=== PATIENT | female | born 1975 | race Caucasian/White ===

== ENCOUNTER 2017-02-02 02:23 | Emergency (ER) | payer OTHER ==
[~2017-02-02 02:23] MED LIST: *UNABLE2; ACET500CAP PO; ADVIL PO; AMIT100 PO; APIDRA SC; ASAB PO; ASABAYER PO; AT25 PO; ATARAX50B PO; AZO-STANDARD95 MG PO; BACDS PO; BISR PR; CEFT5 PO; CELEXA10 PO; CELEXA20 PO; CELEXA40 MG PO; CIP5 PO; CLARIT10 PO; COREG3 PO; COREG6 PO; CYANO1000T PO; DITRO5 PO; DOLOPHINE10 MG PO; EFFIENT10 PO; ELMIRON 100 MG100 MG OR; ELMIRON 100 MG100 MG PO; ELMIRON100 MG OR; FLORASTOR250 MG PO; FOLIC PO; GLUCOPHAGE1000 MG PO; GLUCPH PO; HCTZ12.5 PO; HUMALOG SC; HUMALOGPEN SC; HUMULIN R1 ML SC; HYDROCHLOROT12.5 MG PO; IMDUR30 PO; IMDUR60 PO; ISORDTAB5 PO; LANTUS SC; LANTUSCART SC; LEVAQUIN750 MG OR; LIPITOR10 PO; LIPITOR40 PO; LIPITOR80 MG PO; LISINOPRIL/HCTZ PO; LOP25 PO; LOP50 PO; LORT7 PO; LORTAB 5 PO; Lipitor PO; MAGOX4 PO; MELATONIN PO; MELATONIN5 M1 PO; METHADONE PO; METHATAB40 PO; MICROZIDE PO; MOBIC7.5 PO; MVI PO; NEUR300 PO; NEUR400 PO; NEUR600 PO; NEUR800 PO; NITROQUICK0.4 MG SL; NORCO1 TA1 PO; NORCO1 TAB PO; NORV10 PO; NOVOLOG SC; P10; P10 PO; P20 PO; PAX10 PO; PAX20 PO; PCET PO; PEP20 PO; PERCOCET1 TA2 PO; PLAVIX PO; PR25 PO; PRILO PO; PRIN2.5 PO; PROAIR HFA INH; REG5 PO; RISP1 PO; RISP2 PO; RISPERDAL M1 MG PO; RISPERDAL PO; SIMVASTATIN PO; SPIRIVA INH; SUCR PO; SYMBICORT 160/41 INH; SYMBICORT 160/41 INH INH; TOPXL50 PO; TREXALL10 MG PO; TREXALL15 MG PO; TRIAMCINOLON0.13 TOP; TRIAMCINOLON0.5 % TOP; TUMS PO; TUMSROLL PO; ULTRAM50 PO; VIST25 PO; ZANAFLEX 4 MG TA4 MG PO; ZOCOR10 PO; ZOCOR20 PO; ZOCOR40 PO; ZOFRAN ODT4 MG PO/SL; [UNRECOGNIZED DRUG - REMARK] PO
[2017-02-02 02:30] LABS: BASOPHILS 0.3 %; BASOPHILS ABSOLUTE 0.04 10/3/uL (0.0-0.16); EOSINOPHILS 0.4 %; EOSINOPHILS ABSOLUTE 0.06 10/3/uL (0.0-0.53); ER CBC TAT 0 Hrs 07 Mins; HEMOGLOBIN 11.2 g/dL (12.0-16.0); IMMATURE GRANULOCYTES 0.2 %; IMMATURE GRANULOCYTES ABSOLUTE 0.03 10/3/uL (0.0-0.11); LYMPHOCYTES 22.2 %; LYMPHOCYTES ABSOLUTE 3.01 10/3/uL (0.67-4.30); MEAN CORPUS HGB CONC 31.8 g/dL (32.0-36.0); MEAN CORPUSCULAR HEMOGLOB 27.4 pg (26.0-34.0); MEAN PLATELET VOLUME 9.5 fL (9.2-13.0); MONOCYTES 6.1 %; MONOCYTES ABSOLUTE 0.83 10/3/uL (0.21-1.20); NEUTROPHILS 70.8 %; NEUTROPHILS ABSOLUTE 9.56 10/3/uL (2.02-8.40); PLATELET COUNT 517 10/3/uL (150-400); RBC DISTRIBUTION WIDTH 15.7 % (12.0-16.0); RED CELL COUNT 4.09 10/6/uL (4.0-5.6); WHITE BLOOD CELLS 13.5 10/3/uL (4.5-10.5)
[2017-02-02 02:32] LABS: HEMATOCRIT 35.2 % (36.0-48.0); MANUAL DIFF NO %; MEAN CORPUSCULAR VOLUME 86.1 fL (80-100)
[2017-02-02 02:41] LABS: INTERNATIONAL NORMAL RATI 1.2 UNITS (-); PROTIME (NOT ORD) 14.6 SEC (12.0-14.5)
[2017-02-02 02:49] LABS: BUN (BLOOD UREA NITROGEN) 19 MG/DL (6-23); CALCIUM, SERUM 9.3 MG/DL (8.5-10.4); CHEST PAIN PROFILE TAT 0 Hrs 26 Mins; CHLORIDE, SERUM 103 MMOL/L (96-112); GFR AFRICAN AMERICAN 105 ML/MIN (>=60); GFR NON AFRICAN AMERICAN 91 ML/MIN (>=60); GLUCOSE, SERUM 265 MG/DL (60-99); POTASSIUM, SERUM 3.9 MMOL/L (3.5-5.3); SODIUM, SERUM 138 MMOL/L (135-148); TROPONIN I <0.02 NG/ML (<0.05)
[2017-02-02 02:52] LABS: CO2 (CARBON DIOXIDE) 24 MMOL/L (24-34)
[2017-02-02 03:13] LABS: ALBUMIN 3.6 G/DL (3.5-5.0); SGPT(ALT) 15 U/L (5-65); TOTAL BILIRUBIN 0.1 MG/DL (0-1.2); TOTAL PROTEIN 8.2 G/DL (6.0-8.5)
[2017-02-02 03:15] LABS: ALKALINE PHOSPHATASE 134 U/L (45-117); DIRECT BILIRUBIN < 0.1 MG/DL (0.0-0.4); SGOT(AST) < 3 U/L (5-40)
== END 2017-02-02 06:15 | disposition home or self-care (01) ==
LOC: ER 02:23
PROVIDERS: Emergency Medicine
DX: I25.10 Atherosclerotic heart disease of native coronary artery without angina pectoris (principal); I10 Essential (primary) hypertension; F31.9 Bipolar disorder, unspecified; F41.9 Anxiety disorder, unspecified; Z95.5 Presence of coronary angioplasty implant and graft; Z90.710 Acquired absence of both cervix and uterus; Z88.8 Allergy status to other drugs, medicaments and biological substances; Z91.018 Allergy to other foods; Z79.82 Long term (current) use of aspirin; Z79.4 Long term (current) use of insulin; Z79.899 Other long term (current) drug therapy
CPT/HCPCS: 71020; 71275; 80048; 80076; 83690; 83735; 84484; 85025; 85610; 85730; 93005; 96374; 99285; J1170; J2405; J2550; Q9967

== ENCOUNTER 2017-04-02 03:23 | Emergency (ER) | payer OTHER ==
[2017-04-02 02:16] LABS: BASOPHILS 0.2 %; BASOPHILS ABSOLUTE 0.03 10/3/uL (0.0-0.16); EOSINOPHILS 0.6 %; EOSINOPHILS ABSOLUTE 0.08 10/3/uL (0.0-0.53); HEMOGLOBIN 11.9 g/dL (12.0-16.0); IMMATURE GRANULOCYTES 0.3 %; IMMATURE GRANULOCYTES ABSOLUTE 0.04 10/3/uL (0.0-0.11); LYMPHOCYTES 19.8 %; LYMPHOCYTES ABSOLUTE 2.84 10/3/uL (0.67-4.30); MEAN CORPUS HGB CONC 32.2 g/dL (32.0-36.0); MEAN CORPUSCULAR HEMOGLOB 27.7 pg (26.0-34.0); MEAN PLATELET VOLUME 8.8 fL (9.2-13.0); MONOCYTES 6.8 %; MONOCYTES ABSOLUTE 0.97 10/3/uL (0.21-1.20); NEUTROPHILS 72.3 %; NEUTROPHILS ABSOLUTE 10.37 10/3/uL (2.02-8.40); PLATELET COUNT 451 10/3/uL (150-400); RBC DISTRIBUTION WIDTH 16.6 % (12.0-16.0); WHITE BLOOD CELLS 14.3 10/3/uL (4.5-10.5)
[2017-04-02 02:21] LABS: ER CBC TAT 0 Hrs 04 Min; MANUAL DIFF NO %
[2017-04-02 02:25] LABS: PARTIAL THROMBO TIME 28.6 SEC (22.5-37.2)
[2017-04-02 02:29] LABS: PROTIME (NOT ORD) 13.3 SEC (12.0-14.5)
[2017-04-02 02:32] LABS: BUN (BLOOD UREA NITROGEN) 14 MG/DL (6-23); CALCIUM, SERUM 9.4 MG/DL (8.5-10.4); CHEST PAIN PROFILE TAT 0 Hrs 20 Mins; CHLORIDE, SERUM 100 MMOL/L (96-112); CO2 (CARBON DIOXIDE) 32 MMOL/L (24-34); CREATININE 0.94 MG/DL (0.55-1.02); GFR AFRICAN AMERICAN 87 ML/MIN (>=60); GFR NON AFRICAN AMERICAN 75 ML/MIN (>=60); POTASSIUM, SERUM 4.2 MMOL/L (3.5-5.3); SODIUM, SERUM 140 MMOL/L (135-148); TROPONIN I <0.02 NG/ML (<0.05)
[2017-04-02 02:33] LABS: GLUCOSE, SERUM 367 MG/DL (60-99)
== END 2017-04-02 05:10 | disposition home or self-care (01) ==
LOC: ER 03:23
PROVIDERS: Specialist
DX: R07.9 Chest pain, unspecified (principal); E11.9 Type 2 diabetes mellitus without complications; D72.829 Elevated white blood cell count, unspecified; I25.2 Old myocardial infarction; F31.9 Bipolar disorder, unspecified; Z95.5 Presence of coronary angioplasty implant and graft; F17.200 Nicotine dependence, unspecified, uncomplicated; Z90.710 Acquired absence of both cervix and uterus; Z90.49 Acquired absence of other specified parts of digestive tract; Z91.018 Allergy to other foods; Z88.8 Allergy status to other drugs, medicaments and biological substances; Z79.82 Long term (current) use of aspirin; Z79.4 Long term (current) use of insulin; Z79.899 Other long term (current) drug therapy
CPT/HCPCS: 71020; 80048; 82962; 83735; 84484; 85025; 85610; 85730; 93005; 96374; 96375; 99285; A9270-GY; J2405